=== PATIENT | male | born 2000 | race Caucasian/White ===

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

== ENCOUNTER 2020-04-11 13:09 | Emergency (ER) | payer OTHER ==
[~2020-04-11] VITALS: Ht 180.3 cm; Wt 102.5 kg
[2020-04-11 13:17] VITALS: Ht 180.3 cm; Wt 102.5 kg
[2020-04-11] MEDS ORDERED: ROBAXIN-750750 MG PO (13:45)
[2020-04-11 14:04] VITALS: BP 160/90
== END 2020-04-11 14:04 | disposition home or self-care (01) ==
LOC: ED 13:09
DX: M62.838 Other muscle spasm (principal); M62.830 Muscle spasm of back; I10 Essential (primary) hypertension; Z98.890 Other specified postprocedural states; V49.59XA Passenger injured in collision with other motor vehicles in traffic accident, initial encounter; Y93.89 Activity, other specified; Y92.488 Other paved roadways as the place of occurrence of the external cause; Y99.8 Other external cause status